=== PATIENT | female | born 1950 | race Caucasian/White ===

== ENCOUNTER 2016-10-23 03:53 | Emergency (ER) | payer SELFPAY ==
[2016-10-23] MEDS ORDERED: Metoprolol Tartrate 5 MG/5 ML VIAL ONE (04:33)
[2016-10-23 04:34] LABS: #Basophils 0.1 thou/uL (0.0-0.2); #Eosinphils 0.2 thou/uL (0.0-0.7); #Lymphocytes 2.4 thou/uL (1.20-3.40); #Monocytes 0.6 thou/uL (0.11-0.59); #Neutrophils 3.8 thou/uL (1.40-6.50); %Basophils 1.7 % (0.0-1.0); %Eosinophils 2.9 % (0.0-10.0); %Lymphocytes 33.5 % (21.0-51.0); %Monocytes 7.8 % (0.0-10.0); %Neutrophils 54.1 % (42.0-75.0); Hemoglobin 15.2 g/dL (12.0-16.0); Mean Corpuscular HGB CONC 34.1 g/dL (32.0-36.0); Mean Corpuscular Volume 88.1 fl (81.0-99.0); Mean Platelet Volume 8.4 fL (7.4-10.4); Platelet Count 223 thou/uL (130-400); RBC Distribution Width 11.7 % (11.5-14.5); Red Blood Cell (RBC) Count 5.05 mill/uL (4.20-5.40); White Blood Cell (WBC) Count 7.1 thou/uL (4.8-10.8)
[2016-10-23 04:50] LABS: ALT (SGPT) 14 U/L (8-55); AST (SGOT) 24 U/L (5-34); Albumin 4.8 g/dL (3.4-4.8); Alkaline Phosphatase 99 U/L (40-150); Anion Gap 18 mmol/L (10-20); BUN (Urea Nitrogen) 20 mg/dL (9.8-20.1); Bilirubin, Total 0.7 mg/dL (0.2-1.2); CKMB 3.6 ng/mL (0-6.6); Calc. Creatinine Clearance 0 mL/min (70-130); Calcium 10.1 mg/dL (7.8-10.44); Carbon Dioxide 20 mmol/L (23-31); Chloride 107 mmol/L (98-107); Estimated GFR-MDRD 65; Globulin 2.9 g/dL (2.4-3.5); Glucose 102 mg/dL (80-115); Potassium 3.2 mmol/L (3.5-5.1); Protein, Total 7.7 g/dL (6.0-8.3); Sodium 142 mmol/L (136-145); Troponin I Less than 0.010 ng/mL (< 0.028)
[2016-10-23 04:52] LABS: CK (CPK) 156 U/L (29-168); Lipase 37 U/L (8-78)
--- NOTE | 2016-10-23 08:17 | CT ---
PRELIMINARY REPORT/[facility]/EMERGENCY AFTER HOURS PROCEDURE: EXAM: CT Angiography Chest With Intravenous Contrast CLINICAL HISTORY: 65 years old, female; Signs and symptoms; Angina; Prior surgery; Surgery date: 6+ months; Surgery ty pe: Breast augmentation at age 37; Patient HX: Pt woke with sub sternal cp that radiated to the left chest and left arm to the elbow. 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 No pain currently. Pt di d have an episode of cp yesterday morning while mowing the lawn that made her sit down until it reso lved after a few minutes. Pt with h/o gerd occasionally. Also with cp 3 years ago with neg w/u. Fami ly history of cad in father in 50s and sister 'when she was a lot younger than me'. Pt stopped her o wn BP meds months ago but started back this week due to elevated BP. ; Additional info: Elevated d-d gale TECHNIQUE: Axial computed tomographic angiography images of the chest with intravenous contrast using pulmonary embolism protocol. This CT exam was performed using one or more of the following dose reduction jaswant hniques: automated exposure control, adjustment of the mA and/or kV according to patient size, and/o r use of iterative reconstruction technique. Coronal reformatted images were created and reviewed. Oblique reformatted images were created and reviewed. CONTRAST: 96 mL of ISOVUE 370 administered intravenously. COMPARISON: No relevant prior studies available. FINDINGS: Pulmonary arteries: No pulmonary embolism. Aorta: Unremarkable. Lungs: Minimal bibasilar dependent atelectasis. No focal consolidation. Pleural space: No significant effusion. No pneumothorax. Heart: Unremarkable. Mediastinum: Moderate-sized hiatal hernia. Bones/joints: Multilevel degenerative changes of the spine. No acute fracture. No dislocation. Soft tissues: Bilateral breast implants with contour irregularities of the implant. Lymph nodes: No adenopathy. IMPRESSION: 1. No evidence of pulmonary thromboembolism. 2. Moderate size hiatal hernia. 3. Bilateral breast implants with contour irregularities suggestive of implant rupture. Correlate cl inically. Thank you for allowing us to participate in the care of your patient. Dictated and Authenticated by: Ashwin Orellana MD 10/23/2016 6:39 AM Central Time ([place] \T\ [place]) FINAL REPORT CT PULMONARY ANGIOGRAM WITH IV CONTRAST AND 3D POSTPROCESSING I agree with the preliminary report given by Ashwin Orellana of [facility]. POS: CARLOZ
--- NOTE | 2016-10-23 08:52 | RAD ---
PORTABLE CHEST 1 VIEW: DATE: 10/23/16. TIME: 4:45 a.m. HISTORY: Chest pain. FINDINGS: The heart size is normal. No confluent areas of consolidation, pneumothorax, or pleural effusions a re seen. Bilateral breast implants are present. IMPRESSION: No acute process. POS: VIRGEN
[2016-10-23] MEDS ORDERED: Iopamidol 370 76% 100 ML VIAL ONE (09:00)
== END 2016-10-23 07:18 | disposition short-term general hospital (02) ==
LOC: NAV ERS 03:53
DX: R07.9 Chest pain, unspecified (principal); I10 Essential (primary) hypertension; F90.9 Attention-deficit hyperactivity disorder, unspecified type; Z79.899 Other long term (current) drug therapy
CPT/HCPCS: 36415; 71010; 71275; 80053; 82553; 83690; 84484; 85025; 85379; 93005; 96374

== ENCOUNTER 2017-10-03 22:11 | Emergency (ER) | payer SELFPAY ==
[2017-10-03] MEDS ORDERED: Fluorescein Opthalmic Strip ONE (22:24)
[2017-10-03] MEDS ORDERED: Erythromycin Base 0.5% Oint 1 GM TUBE ONE (22:56)
[2017-10-03] MEDS ORDERED: Gentamicin Ophth Soln 0.3% 5 ml Bottle ONE (22:57)
[2017-10-03] MEDS ORDERED: cloNIDine 0.1 MG TAB ONE (23:26)
== END 2017-10-04 00:20 | disposition home or self-care (01) ==
LOC: NAV ERS 22:11
DX: S05.02XA Injury of conjunctiva and corneal abrasion without foreign body, left eye, initial encounter (principal); I10 Essential (primary) hypertension; F32.9 Major depressive disorder, single episode, unspecified; Z79.899 Other long term (current) drug therapy; X58.XXXA Exposure to other specified factors, initial encounter
CPT/HCPCS: 99283

== ENCOUNTER 2018-04-26 01:11 | Emergency (ER) | payer SELFPAY ==
[2018-04-26 01:34] LABS: Bilirubin Negative (Negative); Blood, Urine Negative (Negative); Clarity Clear (Clear); Glucose, Urine (Dipstick) Negative (Negative); Leukocyte Trace (Negative); Nitrite Negative (Negative); Protein, Urine (Dipstick) Negative (Neg-Trace); Urobilinogen 0.2 mg/dL (0.2-1.0)
[2018-04-26 01:36] LABS: Bacteria/HPF Rare-Few HPF (None Seen); RBC/HPF None Seen HPF (0-3); Squamous Epithelial 0-3 HPF (0-3)
[2018-04-26] MEDS ORDERED: Ibuprofen 800 MG TAB ONE (01:38)
[2018-04-26] MEDS ORDERED: Nitrofurantoin Macrocrystal 50 MG CAP ONE (01:50)
== END 2018-04-26 02:00 | disposition home or self-care (01) ==
LOC: NAV ERS 01:11
DX: N30.00 Acute cystitis without hematuria (principal); I10 Essential (primary) hypertension; F32.9 Major depressive disorder, single episode, unspecified; Z79.899 Other long term (current) drug therapy
CPT/HCPCS: 81003; 81015; 87086; 99283

== ENCOUNTER 2018-07-15 18:02 | Emergency (ER) | payer MEDICARE, SELFPAY ==
[~2018-07-15 18:02] MED LIST: Iopamidol 370 76% 100 ML VIAL ONE
[2018-07-15] MEDS ORDERED: Morphine 4 MG/ML VIAL ONE ×2 (18:22→20:23)
[2018-07-15] MEDS ORDERED: Nitroglycerin 0.4 MG TAB (25 Tab Bottle) ONE (18:23)
[2018-07-15] MEDS ORDERED: Sodium Chloride 0.9% 1,000 ML ONE (18:23)
[2018-07-15] MEDS ORDERED: Aspirin Chewable 81 MG TAB ONE (18:23)
[2018-07-15] MEDS ORDERED: Ondansetron PF 4 MG/2 ML Vial ONE (18:23)
[2018-07-15 18:38] LABS: #Basophils 0.1 thou/uL (0.0-0.2); #Lymphocytes 0.6 thou/uL (1.20-3.40); #Monocytes 0.3 thou/uL (0.11-0.59); %Basophils 0.6 % (0.0-1.0); %Lymphocytes 4.5 % (21.0-51.0); %Monocytes 2.2 % (0.0-10.0); %Neutrophils 92.7 % (42.0-75.0); Hemoglobin 15.4 g/dL (12.0-16.0); Mean Corpuscular HGB CONC 33.1 g/dL (32.0-36.0); Mean Corpuscular Hemoglobin 31.4 pg (27.0-31.0); Mean Corpuscular Volume 94.9 fL (78.0-98.0); Mean Platelet Volume 6.3 fL (7.4-10.4); Platelet Count 365 thou/uL (130-400); RBC Distribution Width 11.5 % (11.5-14.5); Red Blood Cell (RBC) Count 4.91 mill/uL (4.20-5.40)
[2018-07-15] MEDS ORDERED: Pantoprazole 40 MG VIAL ONE (18:52)
[2018-07-15 18:54] LABS: ALT (SGPT) 29 U/L (8-55); AST (SGOT) 37 U/L (5-34); Albumin 5.1 g/dL (3.4-4.8); Alkaline Phosphatase 110 U/L (40-150); Anion Gap 18 mmol/L (10-20); BUN (Urea Nitrogen) 19 mg/dL (9.8-20.1); Calc. Creatinine Clearance 0 mL/min (70-130); Calcium 10.4 mg/dL (7.8-10.44); Carbon Dioxide 22 mmol/L (23-31); Chloride 97 mmol/L (98-107); Estimated GFR-MDRD 50; Globulin 2.9 g/dL (2.4-3.5); Glucose 167 mg/dL (80-115); Lipase 20 U/L (8-78); Potassium 3.4 mmol/L (3.5-5.1); Sodium 134 mmol/L (136-145)
[2018-07-15] MEDS ORDERED: Levofloxacin 500 mg/D5W 100 ml Premix Bag ONE (20:20)
--- NOTE | 2018-07-15 20:28 | CT ---
CONTRAST ENHANCED CTA CHEST, ABDOMEN AND PELVIS: 07/15/18 HISTORY: Pain. Contrast enhanced CTA of chest, abdomen and pelvis is performed (CTA aorta). Evaluate for aortic diss ection. The lungs are well aerated. Minimal areas of atelectasis seen in the lung bases. The thoracic aorta i s unremarkable with no evidence of aortic dissections or aneurysms. Bilateral breast implants seen. Both appears to be partially collapsed. CT abdomen and pelvis demonstrates the liver and spleen to be unremarkable. No evidence of free intra peritoneal air seen. The gallbladder and pancreas are unremarkable. Adrenal glands unremarkable. the left kidney is unremarkable. The right kidney contains 2.6 cm cyst i n the upper pole of the right kidney. No evidence of periaortic lymphadenopathy seen. The right and left renal arteries are patent. Multilevel lumbar degenerative changes seen. Facet hypertrophic changes seen. Levoscoliosis is presen t. the abdominal aorta is unremarkable. No evidence of iliac or pelvic vascular abnormality seen. The small bowel loops are unremarkable. A normal appendix is seen. There is abnormal thickening of portions of the distal ascending colon, en tire transverse colon, and descending colon. This is compatible with changes of colitis. Descending and sigmoid colonic diverticulosis is present. IMPRESSION: Distal colonic diverticulosis with extensive colonic thickening concerning for colitis as described above. POS: VIRGEN
[2018-07-15 21:42] LABS: Bilirubin Negative (Negative); Blood, Urine Negative (Negative); Clarity Clear (Clear); Glucose, Urine (Dipstick) 100 mg/dL (Negative); Leukocyte Negative (Negative); Nitrite Negative (Negative); Protein, Urine (Dipstick) 30 mg/dL (Neg-Trace); Specific Gravity, Urine 1.015 (1.005-1.030); Urobilinogen 0.2 mg/dL (0.2-1.0)
[2018-07-15 21:50] LABS: RBC/HPF 0-3 HPF (0-3); Squamous Epithelial 0-3 HPF (0-3)
== END 2018-07-15 21:30 | disposition home or self-care (01) ==
LOC: NAV ERS 18:02
DX: K52.9 Noninfective gastroenteritis and colitis, unspecified (principal); I10 Essential (primary) hypertension; F32.9 Major depressive disorder, single episode, unspecified; Z79.899 Other long term (current) drug therapy
CPT/HCPCS: 71275; 80053; 81003; 81015; 83690; 84484; 85025; 93005; 96361; 96365; 96375; 96376; C9113; J1956; J2270; J2405; J7050; Q9967

== ENCOUNTER 2018-08-21 03:13 | Emergency (ER) | payer MEDICARE ==
[2018-08-21] MEDS ORDERED: Pantoprazole 40 MG VIAL ONE (03:39)
[2018-08-21] MEDS ORDERED: Morphine 4 MG/ML VIAL ONE ×2 (03:39→04:46)
[2018-08-21] MEDS ORDERED: Ondansetron PF 4 MG/2 ML Vial ONE (03:39)
[2018-08-21] MEDS ORDERED: Sodium Chloride 0.9% 1,000 ML ONE (03:39)
[2018-08-21 03:44] LABS: #Basophils 0.1 thou/uL (0.0-0.2); #Eosinphils 0.1 thou/uL (0.0-0.7); #Monocytes 0.6 thou/uL (0.11-0.59); #Neutrophils 13.1 thou/uL (1.40-6.50); %Basophils 0.8 % (0.0-1.0); %Eosinophils 0.4 % (0.0-10.0); %Lymphocytes 6.6 % (21.0-51.0); %Neutrophils 88.2 % (42.0-75.0); Hemoglobin 13.4 g/dL (12.0-16.0); Mean Corpuscular HGB CONC 32.4 g/dL (32.0-36.0); Mean Corpuscular Hemoglobin 30.6 pg (27.0-31.0); Mean Corpuscular Volume 94.4 fL (78.0-98.0); Mean Platelet Volume 6.8 fL (7.4-10.4); Platelet Count 327 thou/uL (130-400); RBC Distribution Width 11.9 % (11.5-14.5); Red Blood Cell (RBC) Count 4.37 mill/uL (4.20-5.40); White Blood Cell (WBC) Count 14.8 thou/uL (4.8-10.8)
[2018-08-21 03:59] LABS: ALT (SGPT) 22 U/L (8-55); AST (SGOT) 30 U/L (5-34); Albumin 4.8 g/dL (3.4-4.8); Alkaline Phosphatase 106 U/L (40-150); Anion Gap 17 mmol/L (10-20); BUN (Urea Nitrogen) 23 mg/dL (9.8-20.1); Bilirubin, Total 0.4 mg/dL (0.2-1.2); CK (CPK) 140 U/L (29-168); Calc. Creatinine Clearance 0 mL/min (70-130); Calcium 9.8 mg/dL (7.8-10.44); Carbon Dioxide 25 mmol/L (23-31); Chloride 99 mmol/L (98-107); Estimated GFR-MDRD 59; Globulin 2.6 g/dL (2.4-3.5); Glucose 152 mg/dL (80-115); Lipase 32 U/L (8-78); Potassium 3.9 mmol/L (3.5-5.1); Protein, Total 7.4 g/dL (6.0-8.3); Sodium 137 mmol/L (136-145)
[2018-08-21] MEDS ORDERED: Metoprolol Tartrate 5 MG/5 ML VIAL ONE ×2 (04:03→06:53)
[2018-08-21 04:09] LABS: Bilirubin Negative (Negative); Blood, Urine Negative (Negative); Clarity Clear (Clear); Glucose, Urine (Dipstick) 500 mg/dL (Negative); Leukocyte Negative (Negative); Nitrite Negative (Negative); Protein, Urine (Dipstick) Negative (Neg-Trace); Specific Gravity, Urine 1.015 (1.005-1.030); Urobilinogen 0.2 mg/dL (0.2-1.0); pH, Urine 8.5 (5.0-9.0)
[2018-08-21] MEDS ORDERED: Lidocaine Viscous Sol 2% 15 ml UD Cup ONE (04:11)
[2018-08-21] MEDS ORDERED: Mag-Al Plus 1200 MG/1200 MG/120 MG/30 ML UDCUP ONE (04:11)
== END 2018-08-21 07:29 | disposition home or self-care (01) ==
LOC: NAV ERS 03:13
DX: R10.13 Epigastric pain (principal); R11.2 Nausea with vomiting, unspecified; I10 Essential (primary) hypertension; F32.9 Major depressive disorder, single episode, unspecified; Z79.899 Other long term (current) drug therapy
CPT/HCPCS: 80053; 81003; 82550; 83690; 85025; 93005; 96361; 96374; 96375; 96376; C9113; J2270; J2405; J7050

== ENCOUNTER 2018-08-22 10:33 | Emergency (ER) | payer MEDICARE ==
[2018-08-22] MEDS ORDERED: Sodium Chloride 0.9% 1,000 ML ONE (11:24)
[2018-08-22] MEDS ORDERED: Ondansetron PF 4 MG/2 ML Vial ONE (11:24)
[2018-08-22 11:51] LABS: Bilirubin Negative (Negative); Blood, Urine Trace (Negative); Clarity Clear (Clear); Glucose, Urine (Dipstick) Negative (Negative); Leukocyte Negative (Negative); Nitrite Negative (Negative); Protein, Urine (Dipstick) 100 mg/dL (Neg-Trace); RBC/HPF 0-3 HPF (0-3); Specific Gravity, Urine 1.025 (1.005-1.030); Urobilinogen 0.2 mg/dL (0.2-1.0); WBC/HPF 0-3 HPF (0-3)
--- NOTE | 2018-08-22 11:51 | RAD ---
PORTABLE CHEST 1 VIEW: Date: 08/22/18 Time: 1116 hours HISTORY: Chest pain. FINDINGS/IMPRESSION: Comparison made with exam of 10/23/16. Heart size normal. Lungs well expanded without lobar consolidation, pneumothoraces, or large effusion s. Evaluation of lung simpson is limited due to overlying bilateral breast implants. There is a linear wire-like radiopaque density in the left upper chest just below the level of the cl avicle. The possibility for foreign body cannot be excluded. Clinical correlation is recommended. POS: TPC
[2018-08-22 11:53] LABS: #Basophils 0.1 thou/uL (0.0-0.2); #Lymphocytes 0.9 thou/uL (1.20-3.40); #Monocytes 0.7 thou/uL (0.11-0.59); #Neutrophils 10.3 thou/uL (1.40-6.50); %Basophils 1.1 % (0.0-1.0); %Lymphocytes 7.7 % (21.0-51.0); %Monocytes 5.9 % (0.0-10.0); %Neutrophils 85.3 % (42.0-75.0); Hemoglobin 15.6 g/dL (12.0-16.0); Mean Corpuscular HGB CONC 32.3 g/dL (32.0-36.0); Mean Corpuscular Hemoglobin 30.4 pg (27.0-31.0); Mean Corpuscular Volume 94.1 fL (78.0-98.0); Platelet Count 370 thou/uL (130-400); Red Blood Cell (RBC) Count 5.13 mill/uL (4.20-5.40)
[2018-08-22 12:08] LABS: ALT (SGPT) 21 U/L (8-55); AST (SGOT) 30 U/L (5-34); Albumin 4.8 g/dL (3.4-4.8); Alkaline Phosphatase 120 U/L (40-150); Anion Gap 17 mmol/L (10-20); BUN (Urea Nitrogen) 21 mg/dL (9.8-20.1); Bilirubin, Total 0.8 mg/dL (0.2-1.2); Calc. Creatinine Clearance 0 mL/min (70-130); Calcium 9.9 mg/dL (7.8-10.44); Carbon Dioxide 21 mmol/L (23-31); Chloride 97 mmol/L (98-107); Estimated GFR-MDRD 57; Globulin 2.5 g/dL (2.4-3.5); Glucose 125 mg/dL (80-115); Potassium 3.7 mmol/L (3.5-5.1); Protein, Total 7.3 g/dL (6.0-8.3); Sodium 131 mmol/L (136-145)
--- NOTE | 2018-08-22 13:05 | CT ---
CT ABDOMEN AND PELVIS WITH IV CONTRAST: Date: 08/22/18 HISTORY: Abdominal pain. Elevated WBC count. FINDINGS: Comparison made with exam of 08/02/18. The lung bases are unremarkable. A tiny, 6.0 mm, cyst at the inferior tip of the right lobe of the liver is again seen. Cortical cysts in the right kidney are stable. No calcified gallstones are seen. The spleen, pancreas, adrenal glan ds, and left kidney are normal. A small hiatal hernia is present. The small bowel loops are not abnormally dilated. A normal appearin g appendix is present. No free air, free fluid, or lymphadenopathy seen in the abdomen or pelvis. The re is no evidence of aneurysmal dilatation of the abdominal aorta. There are degenerative changes in the spine. There is levoscoliosis of the lumbar spine. Uterus is present. There is a 15 mm cyst in th e right ovary. There is a left breast prosthesis. IMPRESSION: 1. Hiatal hernia. 2. Hepatic and right renal cysts. 3. No evidence of appendicitis. 4. 1.5 cm right ovarian cyst. POS: TPC
[2018-08-22] MEDS ORDERED: Iopamidol 370 76% 100 ML VIAL ONE (18:04)
== END 2018-08-22 13:15 | disposition home or self-care (01) ==
LOC: NAV ERS 10:33
DX: K44.9 Diaphragmatic hernia without obstruction or gangrene (principal); N83.201 Unspecified ovarian cyst, right side; I10 Essential (primary) hypertension; F32.9 Major depressive disorder, single episode, unspecified; Z79.899 Other long term (current) drug therapy
CPT/HCPCS: 71045; 74177; 80053; 81003; 81015; 84484; 85025; 93005; 96361; 96374; J2405; J7050; Q9967

== ENCOUNTER 2018-10-24 03:28 | Emergency (ER) | payer MEDICARE ==
[2018-10-24 03:50] LABS: #Basophils 0.2 thou/uL (0.0-0.2); #Eosinphils 0.4 thou/uL (0.0-0.7); #Lymphocytes 1.5 thou/uL (1.20-3.40); #Neutrophils 11.3 thou/uL (1.40-6.50); %Basophils 1.1 % (0.0-1.0); %Eosinophils 2.5 % (0.0-10.0); %Lymphocytes 10.8 % (21.0-51.0); %Monocytes 6.8 % (0.0-10.0); %Neutrophils 78.8 % (42.0-75.0); Hemoglobin 12.4 g/dL (12.0-16.0); Mean Corpuscular HGB CONC 33.7 g/dL (32.0-36.0); Mean Corpuscular Hemoglobin 30.5 pg (27.0-31.0); Mean Corpuscular Volume 90.4 fL (78.0-98.0); Mean Platelet Volume 7.5 fL (7.4-10.4); Platelet Count 277 thou/uL (130-400); Red Blood Cell (RBC) Count 4.05 mill/uL (4.20-5.40); White Blood Cell (WBC) Count 14.3 thou/uL (4.8-10.8)
[2018-10-24 04:10] LABS: ALT (SGPT) 52 U/L (8-55); AST (SGOT) 56 U/L (5-34); Albumin 4.3 g/dL (3.4-4.8); Alkaline Phosphatase 100 U/L (40-150); Anion Gap 17 mmol/L (10-20); BUN (Urea Nitrogen) 30 mg/dL (9.8-20.1); Bilirubin, Total 0.2 mg/dL (0.2-1.2); CK (CPK) 63 U/L (29-168); Calc. Creatinine Clearance 0 mL/min (70-130); Calcium 9.3 mg/dL (7.8-10.44); Carbon Dioxide 21 mmol/L (23-31); Chloride 100 mmol/L (98-107); Estimated GFR-MDRD 65; Globulin 2.5 g/dL (2.4-3.5); Glucose 142 mg/dL (80-115); Lipase 296 U/L (8-78); Potassium 3.5 mmol/L (3.5-5.1); Protein, Total 6.8 g/dL (6.0-8.3); Sodium 134 mmol/L (136-145)
[2018-10-24] MEDS ORDERED: Morphine 4 MG/ML VIAL ONE (04:21)
[2018-10-24] MEDS ORDERED: Ondansetron PF 4 MG/2 ML Vial ONE (04:22)
[2018-10-24] MEDS ORDERED: Amlodipine 5 MG TAB ONE (04:22)
[2018-10-24] MEDS ORDERED: Sodium Chloride 0.9% 1,000 ML ONE ×2 (04:22→05:26)
[2018-10-24] MEDS ORDERED: Metoprolol Tartrate 50 MG TAB ONE (04:22)
[2018-10-24 04:39] LABS: Bilirubin Negative (Negative); Blood, Urine Trace (Negative); Clarity Clear (Clear); Glucose, Urine (Dipstick) 250 mg/dL (Negative); Leukocyte Small (Negative); Nitrite Negative (Negative); Protein, Urine (Dipstick) Negative (Neg-Trace); Urobilinogen 0.2 mg/dL (0.2-1.0)
[2018-10-24 04:40] LABS: Bacteria/HPF 2+ HPF (None Seen)
[2018-10-24] MEDS ORDERED: Piperacillin/Tazobactam 3.375 GM VIAL ONE (05:25)
[2018-10-24] MEDS ORDERED: Sodium Chloride 0.9% 100 ML ONE (05:26)
== END 2018-10-24 05:42 | disposition short-term general hospital (02) ==
LOC: NAV ERS 03:28
DX: K85.90 Acute pancreatitis without necrosis or infection, unspecified (principal); I10 Essential (primary) hypertension; D72.829 Elevated white blood cell count, unspecified; R11.2 Nausea with vomiting, unspecified; I48.92 Unspecified atrial flutter; F32.9 Major depressive disorder, single episode, unspecified; Z79.899 Other long term (current) drug therapy
CPT/HCPCS: 36415; 80053; 81003; 81015; 82550; 83605; 83690; 84484; 85025; 87040; 87086; 93005; 96361; 96374; 96375; J2270; J2405; J2543; J3490; J7050

== ENCOUNTER 2019-07-03 12:49 | Outpatient (CLI) | payer MEDICARE ==
--- NOTE | 2019-07-03 13:15 | RAD ---
EXAM: Two views chest PROVIDED CLINICAL HISTORY: None COMPARISON: None FINDINGS: Cardiac and mediastinal silhouette appears within normal limits. Lungs appear free of significant opa city. No pleural fluid or pneumothorax apparent. There is gas density seen within the left chest wall, which may be on the basis of left breast prosthesis. IMPRESSION: No evidence for an acute cardiopulmonary process.
== END 2019-07-03 12:50 | disposition home or self-care (01) ==
LOC: NAV RAD 12:49
PROVIDERS: ATTEND Nurse Practitioner Adult Health
DX: J40 Bronchitis, not specified as acute or chronic (principal)
CPT/HCPCS: 71046

== ENCOUNTER 2019-07-12 21:15 | Emergency (ER) | payer MEDICARE ==
[2019-07-12] MEDS ORDERED: Diltiazem 125 MG/25 ML ONE (21:59)
[2019-07-12 22:00] LABS: #Basophils 0.1 thou/uL (0.0-0.2); #Lymphocytes 0.9 thou/uL (1.20-3.40); #Monocytes 1.5 thou/uL (0.11-0.59); #Neutrophils 16.8 thou/uL (1.40-6.50); %Basophils 0.3 % (0.0-1.0); %Lymphocytes 4.7 % (21.0-51.0); %Monocytes 7.6 % (0.0-10.0); %Neutrophils 87.5 % (42.0-75.0); Mean Corpuscular HGB CONC 33.4 g/dL (32.0-36.0); Mean Corpuscular Hemoglobin 29.1 pg (27.0-31.0); Mean Platelet Volume 5.7 fL (7.4-10.4); Platelet Count 611 thou/uL (130-400); RBC Distribution Width 11.8 % (11.5-14.5); Red Blood Cell (RBC) Count 4.13 mill/uL (4.20-5.40); White Blood Cell (WBC) Count 19.3 thou/uL (4.8-10.8)
[2019-07-12] MEDS ORDERED: Piperacillin/Tazobactam 3.375 GM VIAL ONE (22:12)
[2019-07-12] MEDS ORDERED: Sodium Chloride 0.9% 100 ML ONE (22:12)
[2019-07-12 22:17] LABS: ALT (SGPT) 73 U/L (8-55); AST (SGOT) 81 U/L (5-34); Albumin 3.2 g/dL (3.4-4.8); Alkaline Phosphatase 215 U/L (40-110); Anion Gap 19 mmol/L (10-20); BUN (Urea Nitrogen) 12 mg/dL (9.8-20.1); Bilirubin, Total 1.2 mg/dL (0.2-1.2); Calc. Creatinine Clearance 0 mL/min (70-130); Calcium 8.5 mg/dL (7.8-10.44); Carbon Dioxide 26 mmol/L (23-31); Chloride 80 mmol/L (98-107); Estimated GFR-MDRD 76; Globulin 3.4 g/dL (2.4-3.5); Glucose 128 mg/dL (80-115); Potassium 3.3 mmol/L (3.5-5.1); Protein, Total 6.6 g/dL (6.0-8.3); Sodium 122 mmol/L (136-145)
[2019-07-12] MEDS ORDERED: Acetaminophen 500 MG TAB ONE (22:22)
[2019-07-12] MEDS ORDERED: Clindamycin/D5W 900 mg/50 ml Premix Bag ONE (22:23)
[2019-07-12] MEDS ORDERED: Sodium Chloride 0.9% 250 ML 250 ML ONE (22:23)
--- NOTE | 2019-07-12 22:48 | RAD ---
XR Chest 1 View Portable HISTORY: Fever. Bronchitis. COMPARISON: 07/03/2019 exam. FINDINGS: Heart size is within normal limits for AP technique. Linear atelectasis is seen in the righ t lung base. There is persistent air density overlying the left lung base, on the previous chest x-ray this is shown to be related to the left breast. This would suggest the presence of an underlyin g infection unless there is been recent surgical intervention. IMPRESSION: Persistent density over the left lung base. On previous lateral chest film this is shown to be air within the soft tissues in the left breast which appears to be related to a breast prosthesis. I'm not certain if there is been some recent surgical procedure or the that this would in dicate an infectious process related to the left breast implant.
== END 2019-07-12 23:00 | disposition short-term general hospital (02) ==
LOC: NAV ERS 21:15
DX: A41.9 Sepsis, unspecified organism (principal); I48.91 Unspecified atrial fibrillation; E87.1 Hypo-osmolality and hyponatremia; F32.9 Major depressive disorder, single episode, unspecified; I10 Essential (primary) hypertension
CPT/HCPCS: 71045; 80053; 83605; 85025; 87040; 87070; 87205; 87804; 93005; 96365; 96368; 96374; 96375; J2543; J3370; J3490; J7050

== ENCOUNTER 2020-05-21 22:32 | Inpatient (IN) | payer MEDICARE ==
[2020-05-21] MEDS ORDERED: Ondansetron PF 4 MG/2 ML Vial ONE (23:03)
[2020-05-21] MEDS ORDERED: Lidocaine Viscous Sol 2% 15 ml UD Cup ONE (23:03)
[2020-05-21] MEDS ORDERED: Famotidine/PF 20 mg/2ml Vial ONE (23:03)
[2020-05-21] MEDS ORDERED: Mag-Al Plus 1200 MG/1200 MG/120 MG/30 ML UDCUP ONE (23:03)
[2020-05-21] MEDS ORDERED: Morphine 4 MG/ML VIAL ONE (23:03)
[2020-05-21] MEDS ORDERED: Sodium Chloride 0.9% 1,000 ML ONE (23:03)
[2020-05-21 23:20] LABS: ALT (SGPT) 23 U/L (8-55); AST (SGOT) 24 U/L (5-34); Albumin 5.2 g/dL (3.4-4.8); Alkaline Phosphatase 116 U/L (40-110); Anion Gap 19 mmol/L (10-20); BUN (Urea Nitrogen) 14 mg/dL (9.8-20.1); Bilirubin, Total 0.5 mg/dL (0.2-1.2); CK (CPK) 132 U/L (29-168); Calc. Creatinine Clearance 0 mL/min (70-130); Calcium 9.8 mg/dL (7.8-10.44); Carbon Dioxide 22 mmol/L (23-31); Chloride 95 mmol/L (98-107); Globulin 2.9 g/dL (2.4-3.5); Glucose 202 mg/dL (80-115); Lipase 29 U/L (8-78); Potassium 3.2 mmol/L (3.5-5.1); Protein, Total 8.1 g/dL (6.0-8.3); Sodium 133 mmol/L (136-145)
[2020-05-21 23:25] LABS: Band 10 % (5-11); Hemoglobin 13.3 g/dL (12.0-16.0); Lymphocytes 10 % (21-51); MDiff Complete? YES; Manual Diff?? YES; Mean Corpuscular HGB CONC 31.5 g/dL (32.0-36.0); Mean Corpuscular Hemoglobin 25.2 pg (27.0-31.0); Mean Corpuscular Volume 79.9 fL (78.0-98.0); Neutrophil 80 % (42-75); Platelet Count 421 thou/uL (130-400); Platelet Morphology Comment Appears Adequate; RBC Distribution Width 15.4 % (11.5-14.5); RBC Morphology Normal; White Blood Cell (WBC) Count 11.8 thou/uL (4.8-10.8)
[2020-05-21 23:50] LABS: Bilirubin Negative (Negative); Blood, Urine Trace (Negative); Clarity Clear (Clear); Glucose, Urine (Dipstick) 500 mg/dL (Negative); Ketone, Urine Trace mg/dL (Negative); Leukocyte Negative (Negative); Nitrite Negative (Negative); Protein, Urine (Dipstick) 100 mg/dL (Neg-Trace); Specific Gravity, Urine 1.025 (1.005-1.030); Urobilinogen 0.2 mg/dL (Less than 2)
[2020-05-21 23:55] LABS: Bacteria/HPF None Seen HPF (None Seen); RBC/HPF 0-3 HPF (0-3); Squamous Epithelial None Seen HPF (0-3); WBC/HPF None Seen HPF (0-3)
[2020-05-22] MEDS ORDERED: Labetalol HCl 100 MG/20 ML VIAL ONE (00:04)
[2020-05-22] MEDS: Ondansetron PF 4 MG/2 ML Vial IVP PRN ×2 (02:56→22:44)
[2020-05-22] MEDS: NS 0.9% w/ 20 MEQ KCL 1,000 ML IV SCH ×3 (03:45→14:20)
[2020-05-22] MEDS ORDERED: Lisinopril 20 MG TAB PO SCH (05:45)
[2020-05-22] MEDS: Acetaminophen 325 MG TAB PO PRN ×2 (06:24→22:32)
[2020-05-22] MEDS: metroNIDAZOLE 500 MG in Premix Bag 1 BAG IVPB SCH ×3 (06:26→21:53)
--- NOTE | 2020-05-22 07:42 | CT ---
PRELIMINARY REPORT/[facility]/EMERGENCY AFTER HOURS PROCEDURE EXAM: CT Abdomen and Pelvis with Intravenous Contrast CLINICAL HISTORY: Abdominal pain onset this am, associated with vomiting. Pain is across the top of abdomen, no fever. Last BM earlier today. NO SURGICAL HX. TECHNIQUE: Axial computed tomography images of the abdomen and pelvis with intravenous contrast. CONTRAST: With; IV ONLY; ISOVUE 370 96ml COMPARISON: None provided. FINDINGS: LUNG BASES: No basilar airspace consolidation or pleural effusion. LIVER: The liver size and attenuation is normal. There is a small subcentimeter cyst in the right lobe of t he liver.. GALLBLADDER AND BILE DUCTS: Unremarkable. No calcified stone. No ductal dilation. PANCREAS: Normal size and appearance. SPLEEN: Normal size and appearance. ADRENAL GLANDS: Normal size and appearance. KIDNEYS, URETERS, AND BLADDER: Both kidneys have a normal size. Renal cortical cysts are identified on the right the largest in the superior right renal cortex measures 2.5 cm. No hydronephrosis.. STOMACH AND BOWEL: No obstruction. No wall thickening. Mild bowel wall thickening and multiple diverticula identified i n the distal descending and sigmoid colon. Mild diverticulitis is suspected. No complication.. A moderate sized hiatal hernia is identified. APPENDIX: No CT evidence for appendicitis. The appendix is normal. PERITONEUM: No free fluid. No free air. LYMPH NODES: No lymphadenopathy. REPRODUCTIVE: Unremarkable as visualized. VASCULATURE: No aortic aneurysm. BONES: No fracture or suspicious osseous abnormality. There is a moderate left convex mid lumbar curvature. ABDOMINAL WALL AND SOFT TISSUES: Unremarkable. IMPRESSION: Mild diverticulitis of the distal descending and sigmoid colon. No complication. There is no eviden ce of intestinal obstruction. There is a moderate sized hernia.. ELECTRONICALLY SIGNED BY: Bryanna Garduno DO May 22, 2020 1:04:20 AM DENTAL LABORATORY ASSISTANT This report is intended for review by the ordering physician only, in accordance of law. If you recei ve this report in error, please call [facility] at [phone]. FINAL REPORT: CT abdomen and pelvis with IV contrast PROVIDED CLINICAL HISTORY: Abdominal pain COMPARISON: 10/18/2018 FINDINGS/IMPRESSION: Agree with the preliminary interpretation given by [facility]. Transcribed Date/Time: 05/22/2020 8:05 AM
--- NOTE | 2020-05-22 07:51 | RAD ---
EXAM: Portable chest PROVIDED CLINICAL HISTORY: Nausea and vomiting COMPARISON: 07/14/2019 FINDINGS: Cardiac and mediastinal silhouette is within normal limits. No focal consolidation, pleural fluid or pneumothorax evident. IMPRESSION: No evidence for an acute cardiopulmonary process.
[2020-05-22] MEDS ORDERED: cloNIDine 0.1 MG TAB ONE (08:59)
[2020-05-22] MEDS ORDERED: NS 0.9% w/ 20 MEQ KCL 1,000 ML ONE (09:01)
[2020-05-22] MEDS: cloNIDine 0.1 MG TAB PO PRN (09:07)
[2020-05-22] MEDS: Lisinopril 20 MG TAB PO SCH (12:01)
[2020-05-22 12:06] LABS: SARS-CoV-2 NAA Rapid Test Not Detected (NotDetected)
[2020-05-22] MEDS ORDERED: Sodium Chloride 0.9% 1,000 ML IV SCH (18:45)
[2020-05-22] MEDS ORDERED: metroNIDAZOLE 500 MG/100 ML BAG ONE (21:31)
--- NOTE | 2020-05-22 21:51 | HP ---
CHIEF COMPLAINT: Abdominal pain with nausea and vomiting. HISTORY OF PRESENTING ILLNESS: This is a pleasant 69-year-old female, who was admitted to me under city call. She presented to the ER with worsening left lower quadrant abdominal pain with nausea and vomiting. A CT scan showed diverticulitis with any abscess formation. The patient did not feel comfortable going home since she was still having vomiting and significant pain. It was decided to admit her to the hospital under observation for IV antibiotics, IV fluids, and close monitoring. This morning, the patient states that she is still in significant pain, but her nausea has resolved. Plan is to add morphine 2 mg IV q.4h p.r.n., decrease her IV fluids to 50 mL an hour, and start her on a clear liquid diet. She will continue on metronidazole and ciprofloxacin. Plan is to switch her to inpatient. The patient denies any history of similar episodes in the past. PAST MEDICAL HISTORY: 1. Hypertension. 2. Anxiety and depression. 3. Paroxysmal atrial fibrillation. 4. Iron deficiency anemia. 5. History of heart failure with preserved ejection fraction. 6. History of elevated liver function tests. PAST SURGICAL HISTORY: 1. Ablation for atrial fibrillation. 2. Breast augmentation. 3. Rhinoplasty. 4. Dilatation and curettage. FAMILY HISTORY: Positive for coronary artery disease in her father, who at age 53. PSYCHOSOCIAL HISTORY: Lives at home and takes care of her spouse and her mom. She denies any tobacco, alcohol, or recreational drug abuse. MEDICATIONS: She supposedly takes 1. Fluoxetine 40 mg daily. 2. Lisinopril 20 mg daily. 3. States she is on a medicine similar to metoprolol, but not sure of the name. I reviewed her old records and it seems like she was on digoxin 0.25 mg daily and diltiazem. ALLERGIES: NO KNOWN DRUG ALLERGIES. REVIEW OF SYSTEMS: GENERAL: Did notice fever, nausea, and vomiting. CARDIOVASCULAR SYSTEM: Denies any chest pain, shortness of breath, palpitations, PND, orthopnea, pedal edema. RESPIRATORY SYSTEM: Denies any chronic cough, expectoration, or pleuritic-type chest pain. GASTROINTESTINAL SYSTEM: See history of presenting illness. She has been having nausea with vomiting and left lower quadrant pain. Denies any hematemesis, melena, hematochezia. GENITOURINARY SYSTEM: Denies any frequency, urgency, dysuria, hematuria. CENTRAL NERVOUS SYSTEM: Denies any focal numbness, weakness, fainting spells. EXTREMITIES: Denies any significant joint pain or swelling. SKIN: Denies any rash. HEENT: Denies any changes with speech, vision, hearing, or swallowing. PHYSICAL EXAMINATION: GENERAL: Pleasant 69-year-old female, who is up in bed and denies any concerns. She responds appropriately to questions. She is alert, awake, and oriented x3. VITAL SIGNS: She is afebrile. Heart rate is 92, respirations 18, oxygen saturation 98% on room air. Her blood pressure was 220/105 this morning. She was given one dose of clonidine and that her blood pressure dropped to 72/40 and has recovered to 96/51. The patient denies any lightheadedness or dizziness. HEENT: Normocephalic, atraumatic. Pupils equally reactive to light and accommodation. No JVD, thyromegaly, cervical adenopathy, or throat exudates. No carotid bruits. CARDIOVASCULAR SYSTEM: S1 and S2 plus. Rate and rhythm regular. RESPIRATORY SYSTEM: Normal vesicular breath sounds heard in all lung simpson. ABDOMEN: Soft, minimal tenderness in the left lower quadrant. Bowel sounds heard in all quadrants. No organomegaly. No palpable mass. No guarding, rebound, or rigidity. No CV angle tenderness. CENTRAL NERVOUS SYSTEM: Awake and responsive. Cranial nerves 2 through 12 intact. Grossly nonfocal. EXTREMITIES: Without cyanosis, clubbing, or edema. LABORATORY VALUES: Show a white count of 11.8, H and H of 13.3 and 42.3. Sodium 133, potassium was slightly low at 3.2, BUN and creatinine are 14 and 0.93, AST and ALT were normal at [address] of the abdomen and pelvis shows mild diverticulitis of the distal descending and sigmoid colon with no evidence of intestinal obstruction and hiatal hernia. IMPRESSION: 1. Diverticulitis. 2. Hypertension. 3. Hypokalemia. 4. Mild leukocytosis. 5. History of atrial fibrillation. 6. Anxiety and depression. PLAN: 1. Admit to the hospital. Change her to inpatient. 2. Continue IV fluids, but reduce it to 50 mL. 3. Continue Cipro and Flagyl IV. 4. Start clear liquid diet. 5. Add morphine 2 mg IV q.4h p.r.n. 6. Resume lisinopril and fluoxetine. 7. We will have the patient's family bring in her heart rate control medication. 8. Recheck CBC, BMP in the morning. 9. DVT prophylaxis with PlexiPulses. 10. Discussed with the patient in detail. All questions answered. 11. Estimated length of stay, 3 days. No family at bedside. Job ID: [id number]
[2020-05-22] MEDS ORDERED: Morphine 2 MG/ML SYRINGE ONE (22:39)
[2020-05-22] MEDS ORDERED: Morphine 4 MG/ML VIAL ONE (22:41)
[2020-05-22] MEDS: Morphine 4 MG/ML VIAL SLOW IVP PRN (22:44)
[2020-05-23] MEDS: cloNIDine 0.1 MG TAB PO PRN (00:57)
[2020-05-23] MEDS: Acetaminophen 325 MG TAB PO PRN ×2 (00:58→08:52)
[2020-05-23] MEDS ORDERED: Morphine 4 MG/ML VIAL ONE ×4 (02:44→21:03)
[2020-05-23] MEDS: Morphine 4 MG/ML VIAL SLOW IVP PRN ×4 (02:55→21:08)
[2020-05-23] MEDS ORDERED: metroNIDAZOLE 500 MG/100 ML BAG ONE (03:45)
[2020-05-23] MEDS ORDERED: Ciprofloxacin Lactate/D5W 400 mg/200 ml Premix ONE (03:46)
[2020-05-23] MEDS: metroNIDAZOLE 500 MG in Premix Bag 1 BAG IVPB SCH ×3 (05:12→20:29)
[2020-05-23 05:34] LABS: #Basophils 0.1 thou/uL (0.0-0.2); #Lymphocytes 1.2 thou/uL (1.20-3.40); #Monocytes 0.9 thou/uL (0.11-0.59); #Neutrophils 10.8 thou/uL (1.40-6.50); %Basophils 0.7 % (0.0-1.0); %Lymphocytes 9.5 % (21.0-51.0); %Monocytes 6.7 % (0.0-10.0); Hemoglobin 10.9 g/dL (12.0-16.0); Mean Corpuscular HGB CONC 31.7 g/dL (32.0-36.0); Mean Corpuscular Hemoglobin 25.2 pg (27.0-31.0); Mean Corpuscular Volume 79.6 fL (78.0-98.0); Mean Platelet Volume 7.6 fL (7.4-10.4); Platelet Count 298 thou/uL (130-400); RBC Distribution Width 15.2 % (11.5-14.5); Red Blood Cell (RBC) Count 4.31 mill/uL (4.20-5.40); White Blood Cell (WBC) Count 13.1 thou/uL (4.8-10.8)
[2020-05-23 05:46] LABS: Anion Gap 11 mmol/L (10-20); Globulin 2.2 g/dL (2.4-3.5)
[2020-05-23 05:57] LABS: BUN (Urea Nitrogen) 14 mg/dL (9.8-20.1); Calc. Creatinine Clearance 52 mL/min (70-130); Calcium 8.4 mg/dL (7.8-10.44); Carbon Dioxide 21 mmol/L (23-31); Chloride 102 mmol/L (98-107); Glucose 159 mg/dL (80-115); Potassium 4.3 mmol/L (3.5-5.1); Sodium 130 mmol/L (136-145)
[2020-05-23 05:58] LABS: ALT (SGPT) 20 U/L (8-55); AST (SGOT) 23 U/L (5-34); Albumin 3.8 g/dL (3.4-4.8); Alkaline Phosphatase 88 U/L (40-110); Bilirubin, Total 0.5 mg/dL (0.2-1.2)
[2020-05-23] MEDS: FLUoxetine HCl 20 MG CAP PO SCH (08:51)
[2020-05-23] MEDS: Lisinopril 20 MG TAB PO SCH (08:51)
[2020-05-23] MEDS ORDERED: Ondansetron PF 4 MG/2 ML Vial ONE ×3 (11:14→21:05)
[2020-05-23] MEDS: Ondansetron PF 4 MG/2 ML Vial IVP PRN ×3 (11:17→21:09)
--- NOTE | 2020-05-23 17:32 | PRG ---
DATE OF SERVICE: 05/23/2020 SUBJECTIVE: Ms. Rasmussen is complaining of pain, but no further nausea or vomiting. She is tolerating p.o. fluids, but not much. No fever or chills. I did encourage her to start eating more and get up and move around. I told her she needs to be up for all her meals. OBJECTIVE: VITAL SIGNS: This morning, her vital signs showed a temperature of 98.1, pulse 88, respirations 20, oxygen saturation 96% on room air, and blood pressure was 164/81. She still not sure what medicine she was taking for rate control. CARDIOVASCULAR SYSTEM: S1 and S2 plus. RESPIRATORY SYSTEM: Normal vesicular breath sounds. ABDOMEN: Soft and nontender. Bowel sounds heard in all quadrants. EXTREMITIES: Without cyanosis or clubbing. CENTRAL NERVOUS SYSTEM: Generalized weakness. LABORATORY VALUES: White count of 13.1, hemoglobin and hematocrit of 10.9 and 34.3. Sodium 130, potassium 4.3, and BUN and creatinine is 14 and 0.9. IMPRESSION: 1. Diverticulitis. 2. Hypertension. 3. History of atrial fibrillation. 4. Depression and anxiety. 5. Hyponatremia. 6. Resolved hypokalemia. 7. Persistent leukocytosis. PLAN: 1. Continue IV Cipro and Flagyl. 2. Stop IV fluids. 3. Advance diet to full liquid diet. 4. Increase activity, have the patient up in chair for all her meals. 5. Recheck CBC and BMP in the morning. 6. Add metoprolol 25 mg b.i.d. for both rate control as well as for blood pressure. Discussed with the patient in detail. All questions answered. Job ID: [id number]
[2020-05-23] MEDS: Metoprolol Tartrate 25 MG TAB PO SCH (20:27)
[2020-05-24] MEDS: Acetaminophen 325 MG TAB PO PRN ×2 (02:32→18:02)
[2020-05-24] MEDS: metroNIDAZOLE 500 MG in Premix Bag 1 BAG IVPB SCH (04:37)
[2020-05-24 05:21] LABS: #Basophils 0.1 thou/uL (0.0-0.2); #Lymphocytes 1.7 thou/uL (1.20-3.40); #Monocytes 1.2 thou/uL (0.11-0.59); #Neutrophils 7.6 thou/uL (1.40-6.50); %Basophils 1.2 % (0.0-1.0); %Eosinophils 0.3 % (0.0-10.0); %Lymphocytes 16.3 % (21.0-51.0); %Monocytes 10.9 % (0.0-10.0); %Neutrophils 71.2 % (42.0-75.0); Hemoglobin 13.3 g/dL (12.0-16.0); Mean Corpuscular HGB CONC 31.8 g/dL (32.0-36.0); Mean Corpuscular Hemoglobin 25.2 pg (27.0-31.0); Mean Corpuscular Volume 79.2 fL (78.0-98.0); Platelet Count 336 thou/uL (130-400); RBC Distribution Width 15.2 % (11.5-14.5); Red Blood Cell (RBC) Count 5.29 mill/uL (4.20-5.40); White Blood Cell (WBC) Count 10.6 thou/uL (4.8-10.8)
[2020-05-24 05:33] LABS: Anion Gap 15 mmol/L (10-20); BUN (Urea Nitrogen) 17 mg/dL (9.8-20.1); Calc. Creatinine Clearance 48 mL/min (70-130); Carbon Dioxide 24 mmol/L (23-31); Chloride 96 mmol/L (98-107); Glucose 112 mg/dL (80-115); Sodium 131 mmol/L (136-145)
[2020-05-24] MEDS ORDERED: Ondansetron PF 4 MG/2 ML Vial ONE (07:50)
[2020-05-24] MEDS: Lisinopril 20 MG TAB PO SCH (07:57)
[2020-05-24] MEDS: FLUoxetine HCl 20 MG CAP PO SCH (07:58)
[2020-05-24] MEDS: Ondansetron PF 4 MG/2 ML Vial IVP PRN ×3 (07:59→21:50)
[2020-05-24] MEDS ORDERED: Metoprolol Tartrate 25 MG TAB ONE (08:04)
[2020-05-24] MEDS: Metoprolol Tartrate 25 MG TAB PO SCH ×2 (08:05→20:31)
[2020-05-24] MEDS ORDERED: Ciprofloxacin 500 MG TAB PO SCH (09:00)
--- NOTE | 2020-05-24 09:01 | PRG ---
DATE OF SERVICE: 05/24/2020 SUBJECTIVE: Ms. Rasmussen is doing better. She is tolerating her full-liquid diet. She did have some abdominal pain this morning, but no fever or chills. I advised her the plan is to switch her to oral antibiotics today and switch her to a low-residue diet. I also want her to walk in the hallways at least 3 times a day and anticipate discharging her home tomorrow. I advised her that her white count is back to normal, vital signs are stable, and diverticulitis is improving. She denies any questions or concerns. OBJECTIVE: VITAL SIGNS: She is afebrile, heart rate 82, respirations 18, oxygen saturation 97% on room air, blood pressure 167/81. CARDIOVASCULAR SYSTEM: S1 and S2 plus. RESPIRATORY SYSTEM: Normal vesicular breath sounds. ABDOMEN: Soft and nontender. Bowel sounds heard in all quadrants. EXTREMITIES: Without cyanosis or clubbing. CENTRAL NERVOUS SYSTEM: Generalized weakness, otherwise nonfocal. LABORATORY DATA: Laboratory values done this morning shows a white count of 10.6, hemoglobin and hematocrit are 13.3 and 41.9. Sodium 131, potassium 4.0, BUN and creatinine 17 and 0.97. IMPRESSION: 1. Resolving diverticulitis. 2. Paroxysmal atrial fibrillation. 3. Depression and anxiety. 4. Hypertension. 5. Hyponatremia. PLAN: 1. Continue current medications, but change him to oral. 2. Advance diet to low-residue diet. 3. Ambulate in hallways t.i.d. and p.r.n. 4. Recheck CBC and BMP in the morning. 5. Anticipate discharging her home tomorrow. Discussed with the patient and nursing in detail. All questions answered. Job ID: [id number]
[2020-05-24] MEDS ORDERED: metroNIDAZOLE 500 MG TAB ONE (10:27)
[2020-05-24] MEDS ORDERED: Cipro 250 MG TAB ONE ×2 (10:27)
[2020-05-24] MEDS: metroNIDAZOLE 500 MG TAB PO SCH ×3 (10:30→20:32)
[2020-05-24] MEDS: Ciprofloxacin 500 MG TAB PO SCH (20:31)
[2020-05-24] MEDS: Morphine 4 MG/ML VIAL SLOW IVP PRN (21:49)
[2020-05-25] MEDS: Ciprofloxacin 500 MG TAB PO SCH ×2 (05:21→20:35)
[2020-05-25 05:50] LABS: #Basophils 0.2 thou/uL (0.0-0.2); #Eosinphils 0.1 thou/uL (0.0-0.7); #Lymphocytes 2.3 thou/uL (1.20-3.40); #Monocytes 1.5 thou/uL (0.11-0.59); #Neutrophils 6.5 thou/uL (1.40-6.50); %Basophils 1.6 % (0.0-1.0); %Eosinophils 0.7 % (0.0-10.0); %Lymphocytes 21.7 % (21.0-51.0); %Monocytes 14.1 % (0.0-10.0); %Neutrophils 61.8 % (42.0-75.0); Hemoglobin 13.3 g/dL (12.0-16.0); Mean Corpuscular HGB CONC 31.5 g/dL (32.0-36.0); Mean Corpuscular Hemoglobin 25.1 pg (27.0-31.0); Mean Corpuscular Volume 79.8 fL (78.0-98.0); Mean Platelet Volume 7.4 fL (7.4-10.4); Platelet Count 345 thou/uL (130-400); RBC Distribution Width 15.6 % (11.5-14.5); Red Blood Cell (RBC) Count 5.28 mill/uL (4.20-5.40); White Blood Cell (WBC) Count 10.5 thou/uL (4.8-10.8)
[2020-05-25 05:53] LABS: Anion Gap 15 mmol/L (10-20); BUN (Urea Nitrogen) 29 mg/dL (9.8-20.1); Calc. Creatinine Clearance 42 mL/min (70-130); Calcium 8.9 mg/dL (7.8-10.44); Carbon Dioxide 23 mmol/L (23-31); Chloride 97 mmol/L (98-107); Glucose 107 mg/dL (80-115); Potassium 3.8 mmol/L (3.5-5.1); Sodium 131 mmol/L (136-145)
[2020-05-25] MEDS: Morphine 4 MG/ML VIAL SLOW IVP PRN ×2 (08:03→12:29)
[2020-05-25] MEDS: Lisinopril 20 MG TAB PO SCH (08:14)
[2020-05-25] MEDS: Ondansetron PF 4 MG/2 ML Vial IVP PRN ×2 (08:14→12:28)
[2020-05-25] MEDS: metroNIDAZOLE 500 MG TAB PO SCH ×3 (08:14→20:35)
[2020-05-25] MEDS: FLUoxetine HCl 20 MG CAP PO SCH (08:14)
[2020-05-25] MEDS: Metoprolol Tartrate 25 MG TAB PO SCH ×2 (08:14→20:35)
[2020-05-25] MEDS ORDERED: Digoxin 0.5 MG/2 ML AMP ONE (08:41)
[2020-05-25] MEDS ORDERED: Digoxin 0.5 MG/2 ML AMP SLOW IVP SCH (08:45)
[2020-05-25] MEDS ORDERED: Sodium Chloride 0.9% 1,000 ML ONE (09:26)
[2020-05-25] MEDS: Sodium Chloride 0.9% 1,000 ML IV SCH ×2 (09:46→20:37)
[2020-05-26] MEDS: Ciprofloxacin 500 MG TAB PO SCH (05:03)
[2020-05-26] MEDS: Sodium Chloride 0.9% 1,000 ML IV SCH (05:03)
[2020-05-26] MEDS: metroNIDAZOLE 500 MG TAB PO SCH ×2 (09:26→15:50)
[2020-05-26] MEDS: FLUoxetine HCl 20 MG CAP PO SCH (09:27)
[2020-05-26] MEDS ORDERED: Ondansetron ODT 4 MG TAB PO PRN (11:42)
[2020-05-26 11:57] VITALS: TEMP 96.8
[2020-05-26] MEDS ORDERED: Acetaminophen/Codeine 30-300mg Tablet PO PRN (12:51)
--- NOTE | 2020-05-26 13:28 | PRG ---
DATE OF SERVICE: 05/25/2020 SUBJECTIVE: Ms. Rasmussen had an episode of atrial fibrillation with RVR this morning. She was given IV digoxin without any improvement. Again, she was given 10 mg of IV diltiazem and about 20 minutes after that, she converted back to normal sinus rhythm. Plan is to discontinue her lisinopril and metoprolol and start her on diltiazem 30 mg p.o. t.i.d. She is doing well otherwise and plan now is to switch her to oral antibiotics and anticipate discharging her home tomorrow. 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 OBJECTIVE: VITAL SIGNS: She is afebrile. Heart rate is 80, now it was as high as 162 in the morning; respiratory rate 18; oxygen saturation 96% on room air, blood pressure 103/67. CARDIOVASCULAR SYSTEM: S1-S2 plus. RESPIRATORY SYSTEM: Normal vesicular breath sounds. ABDOMEN: Soft, nontender. Bowel sounds heard in all quadrants. EXTREMITIES: Without cyanosis or clubbing. CENTRAL NERVOUS SYSTEM: Generalized weakness otherwise nonfocal. LABORATORY VALUES: White count is 10.5, H and H are 13.3 and 42.1. Sodium 131, potassium 3.8, BUN and creatinine 29 and 1.1. IMPRESSION: 1. Paroxysmal atrial fibrillation. 2. Resolving diverticulitis. 3. Hypertension. 4. Hyponatremia. 5. Anxiety and depression. PLAN: 1. Continue current medications, but switch lisinopril and metoprolol to diltiazem. 2. Continue to encourage p.o. intake. 3. IV fluids x1 back. 4. Ambulate in the hallways with assistance. 5. Anticipate discharge home tomorrow. 6. Outpatient followup with PCP and Cardiology. We will hold off on any anticoagulation at this point until she sees Cardiology. Job ID: [id number]
[2020-05-26 15:54] VITALS: BP 176/82
[2020-05-26 15:55] VITALS: BMI 23.2
[2020-05-26 16:22] LABS: Bilirubin Negative (Negative); Blood, Urine Negative (Negative); Clarity Clear (Clear); Glucose, Urine (Dipstick) Negative (Negative); Ketone, Urine Negative (Negative); Leukocyte Negative (Negative); Nitrite Negative (Negative); Protein, Urine (Dipstick) Negative (Neg-Trace); Urobilinogen 0.2 mg/dL (Less than 2)
[2020-05-26 16:59] LABS: Specific Gravity, Urine Greater/Equal 1.030 (1.005-1.030)
--- NOTE | 2020-05-27 00:59 | DIS ---
DATE OF ADMISSION: 05/22/2020 DATE OF DISCHARGE: 05/26/2020 PRINCIPAL DIAGNOSIS: Diverticulitis. SECONDARY DIAGNOSES: 1. Paroxysmal atrial fibrillation. 2. Hypertension. 3. Anxiety and depression. 4. Resolved hypokalemia. 5. Persistent hyponatremia. COMPLICATIONS: None. ADVERSE REACTIONS: None. PROCEDURES: None. CONSULTATIONS: None. HOSPITAL COURSE: The patient was admitted on 05/23 after city call admitted after presenting to the ER with left lower quadrant abdominal pain with nausea and vomiting. CT scan showed diverticulitis without any abscess formation. She was admitted to the hospital on IV ciprofloxacin, IV Flagyl and IV fluids. She was slowly weaned off IV fluids and her diet was slowly advanced from n.p.o. to clear liquid diet to full liquid diet and then a low residual diet. On the day prior to discharge, she did have an episode of paroxysmal atrial fibrillation with RVR, which responded to IV diltiazem. She was on lisinopril and I had started her on metoprolol, but because of the episode of atrial fibrillation while on metoprolol and lisinopril, plan is to discontinue both of them and start her on diltiazem 30 mg t.i.d. This morning, she is feeling much better, tolerating p.o. intake and is ready to go home. She uses [facility] at [place] and I have sent in the ciprofloxacin, metronidazole and Tylenol with codeine for 3 days and then the diltiazem 30 mg t.i.d. for a month supply. PHYSICAL EXAMINATION: VITAL SIGNS: This morning, she is afebrile, heart rate is 76, respirations 18, oxygen saturation 98% on room air, blood pressure 111/61. CARDIOVASCULAR: S1, S2 plus. RESPIRATORY: Normal vesicular breath sounds. ABDOMEN: Soft, nontender. Bowel sounds heard in all quadrants. EXTREMITIES: Without cyanosis, clubbing. CENTRAL NERVOUS SYSTEM: Nonfocal. DISCHARGE MEDICATIONS: 1. Tylenol 650 q.6 p.r.n. for pain 1-5. 2. Tylenol number No. 3 one tab b.i.d. p.r.n. for pain 6-10. 3. Ciprofloxacin 500 mg b.i.d. for 10 more days. Cardizem 30 mg t.i.d. 1. Prozac 40 mg daily. 2. Flagyl 500 mg t.i.d. for 10 more days. DISCHARGE INSTRUCTIONS: Low residue diet for at least another 2 weeks. FOLLOWUP: Follow up with PCP and Cardiology in 7 to 10 days. She is to call us with any questions or concerns. Total time spent on this discharge including coordination of care was 35 minutes. Job ID: [id number]
== END 2020-05-26 17:55 | disposition home or self-care (01) | DRG 392 ==
LOC: NAV ERS 22:32 → NAV ACUTE 05-22 01:57 → OBSVTOIN 05-22 12:58
PROVIDERS: ADMIT Internal Medicine; ATTEND Internal Medicine
DX: K57.32 Diverticulitis of large intestine without perforation or abscess without bleeding (principal); I50.32 Chronic diastolic (congestive) heart failure; E87.1 Hypo-osmolality and hyponatremia; F32.9 Major depressive disorder, single episode, unspecified; F41.9 Anxiety disorder, unspecified; I48.0 Paroxysmal atrial fibrillation; I11.0 Hypertensive heart disease with heart failure; D72.829 Elevated white blood cell count, unspecified; E87.6 Hypokalemia; D50.9 Iron deficiency anemia, unspecified; Z79.899 Other long term (current) drug therapy; Z98.890 Other specified postprocedural states; Z82.49 Family history of ischemic heart disease and other diseases of the circulatory system; Z20.822 Contact with and (suspected) exposure to COVID-19
CPT/HCPCS: 0240U; 71045; 74177; 80048; 80053; 81003; 81015; 82550; 83690; 84484; 85025; 93005; 96374; 96375; 96376; G0378; J0744; J1160; J2270; J2405; J3480; J7050; Q9967; S0028

== ENCOUNTER 2021-08-30 18:30 | Emergency (ER) | payer MEDICARE ==
[2021-08-30 19:33] LABS: #Basophils 0.1 thou/uL (0.0-0.2); #Eosinphils 0.2 thou/uL (0.0-0.7); #Lymphocytes 1.6 thou/uL (1.20-3.40); #Monocytes 0.8 thou/uL (0.11-0.59); #Neutrophils 5.8 thou/uL (1.40-6.50); %Basophils 0.6 % (0.0-1.0); %Eosinophils 2.7 % (0.0-10.0); %Lymphocytes 18.4 % (21.0-51.0); %Monocytes 9.5 % (0.0-10.0); %Neutrophils 68.8 % (42.0-75.0); Hemoglobin 9.5 g/dL (12.0-16.0); Mean Corpuscular Hemoglobin 27.9 pg (27.0-31.0); Mean Corpuscular Volume 89.8 fL (78.0-98.0); Mean Platelet Volume 7.1 fL (7.4-10.4); Platelet Count 286 thou/uL (130-400); White Blood Cell (WBC) Count 8.4 thou/uL (4.8-10.8)
[2021-08-30 19:47] LABS: INR-International Normal Ratio 2.5; Prothrombin Time 27.3 sec (12.0-14.7)
[2021-08-30 19:48] LABS: PTT 60.7 sec (22.9-36.1)
[2021-08-30 19:53] LABS: ALT (SGPT) 21 U/L (8-55); AST (SGOT) 23 U/L (5-34); Albumin 3.9 g/dL (3.4-4.8); Alkaline Phosphatase 81 U/L (40-110); Anion Gap 16 mmol/L (10-20); BUN (Urea Nitrogen) 15 mg/dL (9.8-20.1); Bilirubin, Total 0.6 mg/dL (0.2-1.2); Calc. Creatinine Clearance 0 mL/min (70-130); Calcium 9.1 mg/dL (7.8-10.44); Carbon Dioxide 23 mmol/L (23-31); Chloride 103 mmol/L (98-107); Globulin 2.4 g/dL (2.4-3.5); Glucose 95 mg/dL (80-115); Potassium 3.9 mmol/L (3.5-5.1); Protein, Total 6.3 g/dL (5.8-8.1); Sodium 138 mmol/L (136-145)
== END 2021-08-30 20:00 | disposition short-term general hospital (02) ==
LOC: NAV ERS 18:30
DX: S30.1XXA Contusion of abdominal wall, initial encounter (principal); I10 Essential (primary) hypertension; Z79.01 Long term (current) use of anticoagulants; Z79.899 Other long term (current) drug therapy; X50.0XXA Overexertion from strenuous movement or load, initial encounter
CPT/HCPCS: 80053; 85025; 85610; 85730; 99284

== ENCOUNTER 2021-09-15 19:29 | Emergency (ER) | payer MEDICARE ==
[2021-09-15 20:03] LABS: #Basophils 0.2 thou/uL (0.0-0.2); #Eosinphils 0.1 thou/uL (0.0-0.7); #Lymphocytes 0.9 thou/uL (1.20-3.40); #Monocytes 0.8 thou/uL (0.11-0.59); #Neutrophils 10.8 thou/uL (1.40-6.50); %Basophils 1.2 % (0.0-1.0); %Eosinophils 0.5 % (0.0-10.0); %Lymphocytes 7.3 % (21.0-51.0); %Monocytes 6.1 % (0.0-10.0); %Neutrophils 84.9 % (42.0-75.0); Hemoglobin 12.6 g/dL (12.0-16.0); Mean Corpuscular HGB CONC 31.1 g/dL (32.0-36.0); Mean Corpuscular Hemoglobin 27.6 pg (27.0-31.0); Mean Corpuscular Volume 88.8 fL (78.0-98.0); Mean Platelet Volume 7.2 fL (7.4-10.4); Platelet Count 387 thou/uL (130-400); RBC Distribution Width 14.6 % (11.5-14.5); Red Blood Cell (RBC) Count 4.58 mill/uL (4.20-5.40); White Blood Cell (WBC) Count 12.7 thou/uL (4.8-10.8)
[2021-09-15] MEDS ORDERED: Ondansetron PF 4 MG/2 ML Vial ONE ×2 (20:11→21:22)
[2021-09-15] MEDS ORDERED: Morphine 4 MG/ML VIAL ONE ×2 (20:11→22:21)
[2021-09-15 20:16] LABS: ALT (SGPT) 25 U/L (8-55); AST (SGOT) 28 U/L (5-34); Albumin 4.8 g/dL (3.4-4.8); Alkaline Phosphatase 104 U/L (40-110); Anion Gap 22 mmol/L (10-20); BUN (Urea Nitrogen) 25 mg/dL (9.8-20.1); Bilirubin, Total 0.6 mg/dL (0.2-1.2); Calc. Creatinine Clearance 0 mL/min (70-130); Calcium 10.4 mg/dL (7.8-10.44); Carbon Dioxide 19 mmol/L (23-31); Chloride 100 mmol/L (98-107); Globulin 3.1 g/dL (2.4-3.5); Glucose 164 mg/dL (80-115); Lipase 30 U/L (8-78); Potassium 3.2 mmol/L (3.5-5.1); Protein, Total 7.9 g/dL (5.8-8.1); Sodium 138 mmol/L (136-145)
[2021-09-15 20:48] LABS: Clarity Clear (Clear)
[2021-09-15 20:49] LABS: Bilirubin Negative (Negative); Blood, Urine Trace (Negative); Glucose, Urine (Dipstick) 100 mg/dL (Negative); Ketone, Urine 15 mg/dL (Negative); Leukocyte Negative (Negative); Nitrite Negative (Negative); Protein, Urine (Dipstick) Negative (Neg-Trace); Urobilinogen 0.2 mg/dL (Less than 2); pH, Urine 7.5 (5.0-9.0)
[2021-09-15 20:53] LABS: RBC/HPF 0-3 HPF (0-3); WBC/HPF None Seen HPF (0-3)
[2021-09-15 20:54] LABS: Bacteria/HPF None Seen HPF (None Seen); Squamous Epithelial None Seen HPF (0-3)
[2021-09-15] MEDS ORDERED: Diltiazem 125 MG/25 ML ONE (22:21)
[2021-09-15] MEDS ORDERED: Sodium Chloride 0.9% 100 ML ONE (22:23)
== END 2021-09-16 00:32 | disposition short-term general hospital (02) ==
LOC: NAV ERS 19:29
DX: R10.13 Epigastric pain (principal); I10 Essential (primary) hypertension; I48.92 Unspecified atrial flutter; Z87.19 Personal history of other diseases of the digestive system; Z79.899 Other long term (current) drug therapy
CPT/HCPCS: 71275; 74174; 80053; 81003; 81015; 82550; 83690; 84484; 85025; 93005; 96365; 96366; 96375; 96376; J2270; J2405; Q9967

== ENCOUNTER 2021-09-26 23:49 | Emergency (ER) | payer MEDICARE ==
[2021-09-27] MEDS ORDERED: Ondansetron PF 4 MG/2 ML Vial ONE (00:11)
[2021-09-27] MEDS ORDERED: Morphine 4 MG/ML VIAL ONE (00:23)
[2021-09-27] MEDS ORDERED: Labetalol HCl 100 MG/20 ML VIAL ONE (00:39)
[2021-09-27 00:43] LABS: #Basophils 0.2 thou/uL (0.0-0.2); #Eosinphils 0.2 thou/uL (0.0-0.7); #Lymphocytes 1.9 thou/uL (1.20-3.40); #Monocytes 1.2 thou/uL (0.11-0.59); #Neutrophils 7.8 thou/uL (1.40-6.50); %Basophils 1.4 % (0.0-1.0); %Eosinophils 1.4 % (0.0-10.0); %Lymphocytes 17.1 % (21.0-51.0); %Monocytes 10.5 % (0.0-10.0); %Neutrophils 69.7 % (42.0-75.0); Hemoglobin 11.9 g/dL (12.0-16.0); Mean Corpuscular HGB CONC 30.9 g/dL (32.0-36.0); Mean Corpuscular Hemoglobin 28.2 pg (27.0-31.0); Mean Corpuscular Volume 91.3 fL (78.0-98.0); Mean Platelet Volume 7.1 fL (7.4-10.4); Platelet Count 380 thou/uL (130-400); RBC Distribution Width 14.8 % (11.5-14.5); White Blood Cell (WBC) Count 11.1 thou/uL (4.8-10.8)
[2021-09-27 00:46] LABS: ALT (SGPT) 21 U/L (8-55); AST (SGOT) 22 U/L (5-34); Albumin 4.3 g/dL (3.4-4.8); Alkaline Phosphatase 79 U/L (40-110); Anion Gap 19 mmol/L (10-20); BUN (Urea Nitrogen) 24 mg/dL (9.8-20.1); Bilirubin, Total 0.3 mg/dL (0.2-1.2); Calc. Creatinine Clearance 0 mL/min (70-130); Calcium 9.4 mg/dL (7.8-10.44); Carbon Dioxide 18 mmol/L (23-31); Chloride 100 mmol/L (98-107); Globulin 2.6 g/dL (2.4-3.5); Glucose 112 mg/dL (80-115); Lipase 67 U/L (8-78); Potassium 4.1 mmol/L (3.5-5.1); Protein, Total 6.9 g/dL (5.8-8.1); Sodium 133 mmol/L (136-145)
== END 2021-09-27 02:39 | disposition short-term general hospital (02) ==
LOC: NAV ERS 23:49
DX: I16.0 Hypertensive urgency (principal); R10.13 Epigastric pain; R00.0 Tachycardia, unspecified; I10 Essential (primary) hypertension; I48.91 Unspecified atrial fibrillation; Z87.19 Personal history of other diseases of the digestive system; Z79.899 Other long term (current) drug therapy
CPT/HCPCS: 80053; 83605; 83690; 84484; 85025; 93005; 96374; 96375; 96376; J2270; J2405

== ENCOUNTER 2021-10-03 18:07 | Emergency (ER) | payer MEDICARE | END 2021-10-03 19:00 | disposition home or self-care (01) | LOC: NAV ERS 18:07 | DX: F19.239 Other psychoactive substance dependence with withdrawal, unspecified (principal); I10 Essential (primary) hypertension; Z79.899 Other long term (current) drug therapy | CPT/HCPCS: 99283 ==

== ENCOUNTER 2023-10-23 22:35 | Emergency (ER) | payer MEDICARE ==
[2023-10-23] MEDS ORDERED: Cyclobenzaprine 10 MG TAB ONE (23:47)
== END 2023-10-23 23:58 | disposition home or self-care (01) ==
LOC: NAV ERS 22:35
DX: S16.1XXA Strain of muscle, fascia and tendon at neck level, initial encounter (principal); I11.0 Hypertensive heart disease with heart failure; I50.9 Heart failure, unspecified; Z79.899 Other long term (current) drug therapy; V48.5XXA Car driver injured in noncollision transport accident in traffic accident, initial encounter
CPT/HCPCS: 70450; 72125; G0390

== ENCOUNTER 2023-12-22 13:36 | Emergency (ER) | payer MEDICARE ==
[2023-12-22] MEDS ORDERED: Ondansetron PF 4 MG/2 ML Vial ONE (14:08)
[2023-12-22] MEDS ORDERED: Sodium Chloride 0.9% 1,000 ML ONE (14:08)
[2023-12-22 14:36] LABS: ALT (SGPT) 24 U/L (8-55); AST (SGOT) 25 U/L (5-34); Albumin 4.5 g/dL (3.4-4.8); Alkaline Phosphatase 91 U/L (40-110); Anion Gap 20 mmol/L (10-20); BUN (Urea Nitrogen) 12 mg/dL (9.8-20.1); Bilirubin, Total 0.7 mg/dL (0.2-1.2); Calc. Creatinine Clearance 0 mL/min (70-130); Calcium 9.9 mg/dL (7.8-10.44); Carbon Dioxide 25 mmol/L (23-31); Chloride 95 mmol/L (98-107); Estimated GFR 59; Globulin 2.9 g/dL (2.4-3.5); Glucose 176 mg/dL (83-110); Lipase 23 U/L (8-78); Magnesium 1.9 mg/dL (1.6-2.6); Potassium 3.1 mmol/L (3.5-5.1); Protein, Total 7.4 g/dL (5.8-8.1); Sodium 137 mmol/L (136-145); Troponin I Less than 0.010 ng/mL (< 0.028)
[2023-12-22 14:45] LABS: Hematocrit 43.6 % (36.0-47.0); Hemoglobin 14.5 g/dL (12.0-16.0); Lymphocytes 8 % (21-51); MDiff Complete? YES; Mean Corpuscular HGB CONC 33.3 g/dL (32.0-36.0); Mean Corpuscular Hemoglobin 30.2 pg (27.0-31.0); Mean Corpuscular Volume 90.7 fl (78.0-98.0); Mean Platelet Volume 6.7 fL (7.4-10.4); Monocytes 1 % (0-10); Neutrophil 90 % (42-75); Platelet Adequacy Comment Appears Adequate; Platelet Count 260 10x3/uL (130-400); RBC Distribution Width 11.9 % (11.5-14.5); Red Blood Cell (RBC) Count 4.81 mill/uL (4.20-5.40); White Blood Cell (WBC) Count 15.1 10x3/uL (4.8-10.8)
[2023-12-22 14:46] LABS: Reactive Lymphocytes 1 % (0-10)
[2023-12-22] MEDS ORDERED: Piperacillin/Tazobactam 3.375 GM VIAL ONE (15:43)
[2023-12-22] MEDS ORDERED: Potassium Chloride 20 MEQ TAB ONE (15:43)
[2023-12-22] MEDS ORDERED: Sodium Chloride 0.9% 100 ML ONE (15:45)
[2023-12-22 16:47] LABS: Bilirubin Negative (Negative); Blood, Urine Negative (Negative); Clarity Clear (Clear); Glucose, Urine (Dipstick) Negative (Negative); Ketone, Urine Trace mg/dL (Negative); Leukocyte Negative (Negative); Nitrite Negative (Negative); Protein, Urine (Dipstick) Trace mg/dL (Neg-Trace); Specific Gravity, Urine 1.015 (1.005-1.030); Urobilinogen 0.2 mg/dL (Less than 2); pH, Urine 7.5 (5.0-9.0)
[2023-12-22 16:51] LABS: CAUTI Indications for Culture Dysuria,urgency,freq; Squamous Epithelial 0-3 HPF (0-3); WBC/HPF 0-3 HPF (0-3)
[2023-12-22 16:52] LABS: Urine Culture Reflex No No
== END 2023-12-22 17:30 | disposition home or self-care (01) ==
LOC: NAV ERS 13:36
DX: A09 Infectious gastroenteritis and colitis, unspecified (principal); E86.0 Dehydration; I10 Essential (primary) hypertension; Z79.899 Other long term (current) drug therapy
CPT/HCPCS: 74177; 80053; 81001; 83605; 83690; 83735; 84484; 85025; 93005; 94760; 96361; 96365; 96375; J2405; J2543; J7030; Q9967

== ENCOUNTER 2024-01-15 23:22 | Emergency (ER) | payer MEDICARE ==
[2024-01-16 00:17] LABS: #Basophils 0.1 thou/uL (0.0-0.2); #Lymphocytes 0.8 thou/uL (1.20-3.40); #Monocytes 0.5 thou/uL (0.11-0.59); #Neutrophils 10.6 thou/uL (1.40-6.50); %Basophils 0.5 % (0.0-1.0); %Eosinophils 0.1 % (0.0-10.0); %Lymphocytes 6.8 % (21.0-51.0); %Monocytes 4.3 % (0.0-10.0); %Neutrophils 88.3 % (42.0-75.0); Hematocrit 36.6 % (36.0-47.0); Hemoglobin 12.6 g/dL (12.0-16.0); Mean Corpuscular HGB CONC 34.5 g/dL (32.0-36.0); Mean Corpuscular Volume 89.9 fl (78.0-98.0); Mean Platelet Volume 6.8 fL (7.4-10.4); Platelet Count 241 10x3/uL (130-400); RBC Distribution Width 11.4 % (11.5-14.5); Red Blood Cell (RBC) Count 4.07 mill/uL (4.20-5.40)
[2024-01-16 00:35] LABS: ALT (SGPT) 27 U/L (8-55); AST (SGOT) 32 U/L (5-34); Albumin 4.4 g/dL (3.4-4.8); Alkaline Phosphatase 78 U/L (40-110); Anion Gap 16 mmol/L (10-20); BUN (Urea Nitrogen) 23 mg/dL (9.8-20.1); Bilirubin, Total 0.8 mg/dL (0.2-1.2); Calc. Creatinine Clearance 0 mL/min (70-130); Calcium 9.7 mg/dL (7.8-10.44); Carbon Dioxide 25 mmol/L (23-31); Chloride 90 mmol/L (98-107); Estimated GFR 54; Globulin 2.9 g/dL (2.4-3.5); Glucose 145 mg/dL (83-110); Lipase 15 U/L (8-78); Potassium 3.8 mmol/L (3.5-5.1); Protein, Total 7.3 g/dL (5.8-8.1); Sodium 127 mmol/L (136-145)
[2024-01-16] MEDS ORDERED: Ondansetron ODT 4 MG TAB ONE (01:55)
== END 2024-01-16 01:24 | disposition home or self-care (01) ==
LOC: NAV ERS 23:22
DX: E87.1 Hypo-osmolality and hyponatremia (principal); E86.0 Dehydration; I11.0 Hypertensive heart disease with heart failure; I50.9 Heart failure, unspecified
CPT/HCPCS: 36415; 80053; 83690; 85025; 99285; Q0162